=== PATIENT | female | born 1995 | race Two or more races ===

== ENCOUNTER 2025-03-16 | Emergency (ER) | payer OTHER ==
[~2025-03-16] VITALS: Ht 177.8 cm; Wt 72.6 kg
[2025-03-16] MEDS ORDERED: KETOROLAC TROMETHAMINE INJ 30 MG/ML VIAL ONE (00:40)
[2025-03-16] MEDS ORDERED: ONDANSETRON HCL/PF 4 MG/2 ML VIAL ONE (00:40)
[2025-03-16] MEDS: IV NS 0.9% 1,000 ML BAG IV ONE (00:41)
[2025-03-16] MEDS: KETOROLAC TROMETHAMINE 15 MG/ML VIAL IV ONE (00:42)
[2025-03-16] MEDS: ONDANSETRON HCL/PF 4 MG/2 ML VIAL IVP ONE (00:42)
[2025-03-16 00:49] LABS: BASOPHILS % (AUTO) 0.2 % (0.0-2.0); EOSINOPHILS % (AUTO) 0.1 % (0.0-6.0); HEMATOCRIT 44 % (33-45); HEMOGLOBIN 14.3 g/dL (11.5-14.8); LYMPHOCYTES # (AUTO) 1.8 K/uL (0.8-4.8); MEAN CORPUSCULAR HEMOGLOBIN 29 PG (26.0-33.0); MEAN CORPUSCULAR HGB CONC 33 g/dl (31.0-36.0); MEAN CORPUSCULAR VOLUME 89 fL (82-100); MONOCYTES # (AUTO) 0.5 K/uL (0.1-1.30); MONOCYTES % (AUTO) 3.9 % (2.0-12.0); NEUTROPHILS # (AUTO) 10.4 K/uL (1.8-8.9); NEUTROPHILS % (AUTO) 81.8 % (43.0-81.0); PLATELET COUNT (AUTO) 263 K/uL (150-450); RED BLOOD CELL COUNT(AUTO) 4.89 MIL/uL (4.0-5.2); WHITE BLOOD COUNT (AUTO) 12.8 K/uL (4.3-11.0)
[2025-03-16 00:50] LABS: APPEARANCE,URINE CLEAR (CLEAR); BILIRUBIN,URINE NEGATIVE (NEGATIVE); BLOOD, URINE TRACE-INTA Ery/uL (NEGATIVE); COLOR,URINE YELLOW (YELLOW); KETONES,URINE NEGATIVE (NEGATIVE); LEUKOCYTE ESTERASE ,URINE NEGATIVE (NEGATIVE); NITRITE, URINE NEGATIVE (NEGATIVE); PROTEIN,URINE NEGATIVE (NEGATIVE); UGLUCOSE NEGATIVE (NEGATIVE); UROBILINOGEN,URINE 0.2 EU/dL (0.2)
[2025-03-16 00:58] LABS: CALCIUM, SERUM 8.8 mg/dL (8.5-10.1); CREATININE 0.6 mg/dL (0.6-1.3); POTASSIUM 3.6 mmol/L (3.5-5.1)
[2025-03-16 00:59] LABS: PREGNANCY TEST URINE QUAL NEGATIVE (NEGATIVE)
[2025-03-16 01:03] LABS: ALBUMIN 3.9 g/dL (3.4-5.0); BILIRUBIN,DIRECT 0.1 mg/dL (0.0-0.2); BILIRUBIN,TOTAL 0.2 mg/dL (0.2-1.0); TOTAL PROTEIN, SERUM 7.9 g/dL (6.4-8.2)
[2025-03-16 01:06] LABS: RBC,URINE 0-2 /HPF (0-2)
[2025-03-16 01:07] LABS: ADD URINE CULTURE YES; BACTERIA,URINE 2+ /HPF (None Seen); WBC,URINE 0-2 /HPF (0-3)
[2025-03-16 01:08] LABS: URINE AMORPHOUS PHOSPHATES Few /HPF (None Seen)
[2025-03-16 01:15] LABS: INR 1.02 (0.91-1.10); PARTIAL THROMBOPLASTIN TIME 27.3 SEC (24.3-34.3); PROTHROMBIN TIME 10.8 SECS (9.2-11.1)
[2025-03-16 02:15] VITALS: BP 120/70; TEMP 98.2; O2SAT 97
== END 2025-03-16 02:25 | disposition home or self-care (01) ==
LOC: ER 00:13
DX: N20.0 Calculus of kidney (principal); F10.129 Alcohol abuse with intoxication, unspecified; R10.84 Generalized abdominal pain; Y90.5 Blood alcohol level of 100-119 mg/100 ml
CPT/HCPCS: 99285; 96374; 96361; 96375; 76856; 74176; 85025; 80048; 87086; 83690; 80076; 84703; 81001; 36415; 85730; 80320; J1885; J2405; J7030; G0480